=== PATIENT | male | born 1960 | race Two or more races ===

== ENCOUNTER → 2017-09-30 | Outpatient (REF) | LOC: M SMT 11:13 | DX: Z02.71 Encounter for disability determination (principal); M16.12 Unilateral primary osteoarthritis, left hip; M17.12 Unilateral primary osteoarthritis, left knee ==

== ENCOUNTER → 2019-01-21 | Outpatient (CLI) | payer OTHER ==
[~2019-01-21] MED LIST: ASPI81TA85 PO; BENA20TA PO; BLAC1CAP2 PO; CITA10TA5 PO; EMER1CHW PO; FISH500C PO; MULTLIQ7 PO; TRAM50TA2 PO
--- NOTE | 2019-01-26 20:04 | SLEEPCENT ---
DATE OF PROCEDURE: 01/21/2019 Ordered by: Dr. Mckeon Nocturnal polysomnography was performed for evaluation of sleep physiology in light of concern over the possibility of obstructive sleep apnea syndrome. 6 hours and 36 minutes of data were reviewed. There were 276.5 minutes of sleep identified. Sleep latency was prolonged at 84.5 minutes. REM latency was normal at 99.5 minutes. Sleep architecture once established was good. There were three REM cycles. Overall sleep efficiency was 70.9%. The electrocardiogram showed a sinus rhythm throughout with an average heart rate of 60 beats per minute. Rate ranged 50-70 beats per minute. EEG showed some minor alpha intrusion into non-REM stages. There were no focal events identified and there were normal waveforms for awake and sleep. There were 48 respiratory events identified of 10 seconds in duration or greater for an apnea-hypopnea index of 10.4. The events were primarily obstructive, not exclusive to sleep stage nor body posture. Arousals from respiratory events occurred three times per hour and some oxygen desaturations were seen into the 80s. Activity was also seen in the limb leads, but limb related arousals occurred five times per hour and snoring was noted over the entire study. IMPRESSION Obstructive sleep apnea syndrome (G47.33). Apnea-hypopnea index 10.4. RECOMMENDATIONS The patient should be encouraged to return to the sleep disorder center for pressure therapy. In the interim alcohol and sedative avoidance should be practiced and caution exercised during operation of motor vehicles.
== END ==
LOC: M SLEEP 19:25
PROVIDERS: ATTEND Internal Medicine
DX: G47.33 Obstructive sleep apnea (adult) (pediatric) (principal)

== ENCOUNTER → 2019-03-08 | Outpatient (CLI) | payer OTHER ==
[~2019-03-08] MED LIST changes: -BLAC1CAP2 PO; -CITA10TA5 PO; -EMER1CHW PO; -TRAM50TA2 PO
--- NOTE | 2019-03-16 02:48 | ECWPNPC ---
PATIENT NAME: ALON UNGER : 1960 GENDER: MALE VISIT DATE: 03/08/2019 DISCHARGE DATE: 03/08/19 1606 VISIT LOCKED DATE TIME: PHYSICIAN: BETO MONZON MD RESOURCE: BETO MONZON MD REASON FOR APPOINTMENT 1. NECK AND LOW BACK HISTORY OF PRESENT ILLNESS PAIN SCREENING: PATIENT HAS A COMPLAINT OF ACUTE OR CHRONIC PAIN :YES 58 YEAR OLD MALE PATIENT WITH A HISTORY OF CHRONIC LOW BACK AND LEG PAIN. THE PATIENT DESCRIBES THE PAIN BURNING, SHOOTING, AND CONTINUOUS WITH A PAIN SCORE OF 9-10/10 DEPENDING ON PHYSICAL ACTIVITY. THE PATIENT STATES HIS PAIN BEGINS IN HIS LOW BACK AND RADIATES DOWN MAINLY HIS LEFT LEG. THE PATIENT SAYS HE HAS BEEN SUFFERING FROM THIS PAIN FOR MANY YEARS AND HAS BEEN RECEIVING INTERVENTIONAL THERAPY AND MEDICATION MANAGEMENT. THE PATIENT STATES HE HAS HAD A LOW BACK FUSION DONE IN 1998 AND A NECK FUSION IN 1999, YET THE PAIN STILL PERSISTS. THE PATIENT SAYS HIS PAIN IS AFFECTING HIS ABILITY TO PERFORM HIS DAILY ACTIVITIES SUCH WALKING, CLEANING, AND RIDING IN HIS CAR. THE PATIENT REPORTS HAVING A FUSION DONE IN 1998. PATIENT DENIES UNEXPLAINABLE WEIGHT LOSS, FEVER, CHILLS, NEW CHANGES ON HIS URINARY OR BOWEL CONTROL. THE PATIENT MENTIONS HE WAS INFORMED HE HAS A PROSTATE TUMOR AND THERE ARE PLANS FOR IT TO BE REMOVED SOON. FALL RISK SCREENING: SCREENING :NO FALLS REPORTED IN THE LAST YEAR CURRENT MEDICATIONS TAKING IBUPROFEN 800 MG TABLET 1 TABLET ORALLY THREE TIMES A DAY TAKING ATORVASTATIN CALCIUM 80 MG TABLET 1 TABLET ORALLY ONCE A DAY TAKING BENAZEPRIL HCL 40 MG TABLET 1 TABLET ORALLY ONCE A DAY TAKING ASPIRIN ADULT LOW STRENGTH 81 MG TABLET DELAYED RELEASE 1 TABLET ORALLY ONCE A DAY TAKING FISH OIL 1000 MG CAPSULE 1 CAPSULE ORALLY ONCE A DAY TAKING VITAMIN C 500 MG TABLET 1 TABLET ORALLY ONCE A DAY TAKING MULTIVITAMINS CAPSULE ORALLY TAKING SAW PALMETTO 160 MG TABLET DIRECTED ORALLY TAKING CO Q 10 60 MG CAPSULE 1 CAPSULE WITH A MEAL ORALLY ONCE A DAY TAKING CALCIUM 150 MG TABLET DIRECTED ORALLY MEDICATION LIST REVIEWED AND RECONCILED WITH THE PATIENT PAST MEDICAL HISTORY CHRONIC NECK AND BACK PAIN HYPERTENSION HYPERLIPIDEMIA PROSTATE CANCER ALLERGIES N.K.D.A. SURGICAL HISTORY TONSILS REMOVED APPENDIX REMOVED BACK SURGERY-LOW BACK FUSION 1998 NECK SURGERY-FUSION 1999 5 KNEE SURGERIES [id number] FAMILY HISTORY FATHER: , DIAGNOSED WITH HYPERTENSION SIBLINGS: ALIVE NON-CONTRIBUTORY FATHER FROM [employer]. SOCIAL HISTORY GENERAL: TOBACCO USE ARE YOU A:: NEVER SMOKER. PAIN CLINIC PFS, CLERGY, PUBLIC HEALTH REFERRALS HAS THE PATIENT BEEN EDUCATED REGARDING HIS/HER PLAN OF CARE?YES HAS THE PATIENT BEEN EDUCATED REGARDING PAIN, THE RISK FOR PAIN, THE IMPORTANCE OF EFFECTIVE PAIN MANAGEMENT, AND THE PAIN ASSESSMENT PROCESS?YES LATEX QUESTIONNAIRE LATEX ALLERGY : HAVE YOU EVER DEVELOPED ANY TYPE OF REACTION AFTER HANDLING LATEX PRODUCTS SUCH RUBBER GLOVES, CONDOMS, DIAPHRAGMS, BALLOONS, SOCKS, OR UNDERWEAR?NO LATEX ALLERGY : HAVE YOU EVER DEVELOPED ANY TYPE OF REACTION DURING OR AFTER DENTAL APPOINTMENT, VAGINAL/RECTAL EXAMINATION, SURGICAL PROCEDURE, OR ANY OTHER EXPOSURE?NO LATEX RISK : HAVE YOU EVER HAD ANY DIFFICULTY BREATHING OR HIVES AFTER EATING OR HANDLING ANY FRUITS, OR VEGETABLES; SUCH KIWI, BANANAS, STONE FRUITS, OR CHESTNUTSNO LATEX RISK : DO YOU HAVE A PREVIOUS PERSONAL HISTORY OF MORE THAN NINE SURGERIES, SPINA BIFIDA, OR REPEATED CATHERIZATIONS? NO LATEX RISK : ARE YOU FREQUENTLY EXPOSED TO LATEX PRODUCTS IN YOUR OCCUPATION?NO DATE ASKED : 03/08/2019 CAFFEINE CAFFEINE USE?NO ADVANCE DIRECTIVE ADVANCE DIRECTIVE DISCUSSED WITH PATIENT:YES PT DOES NOT HAVE HCP AT THIS TIME AND DECLIES INFO AT THIS TIME. STATES HE WILL DO THIS IN THE FUTURE. 03/08/19 EDUCATION LEVEL OF EDUCATION:PROFESSIONAL SCHOOLS/MASTERS/PHD YAZIDI YAZIDI NO SPIRITISM BELIEFS THAT WOULD IMPACT HEALTH CARE. 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 LEARNING BARRIERS / SPECIAL NEEDS BARRIERS TO LEARNING?NO HEARING IMPAIRED?NO VISION IMPAIRED?NO COGNITIVELY IMPAIRED?NO READINESS TO LEARN?YES REVIEWED WITH PATIENT 03/08/19 1425 BV. HOSPITALIZATION/MAJOR DIAGNOSTIC PROCEDURE SEE ABOVE SURGERIES REVIEW OF SYSTEMS REVIEWED BY: PROVIDER: BETO MONZON MD . CONSTITUTIONAL: ANY CHANGE IN YOUR MEDICAL CONDITION? YES, PATIENT DIAGNOSED WITH PROSTATE CANCER 02/2019 . CHILLS NO . FEVER NO . INFECTION: DO YOU HAVE NEW INFECTIONS? NO . DO YOU HAVE HISTORY OF MRSA? NO . MUSCULOSKELETAL: ANY NEW PATTERNS OF PAIN OR NUMBNESS? NO . SYTEMIC LUPUS NO . GASTROENTEROLOGY: ANY NEW CHANGE IN BOWEL CONTROL? NO . BARRETTS ESOPHAGUS NO . CIRRHOSIS NO . HEPATITIS NO . LIVER FAILURE NO . ACID REFLUX NO . UNEXPLAINED WEIGHT LOSS NO . GENITOURINARY: ANY NEW CHANGE IN BLADDER CONTROL? NO . IS THERE A CHANCE YOU COULD BE ? NO . HEMATOLOGY/LYMPH: DO YOU TAKE ANY BLOOD THINNERS? (FOR EXAMPLE- COUMADIN, PLAVIX, AGGRENOX, PLATEL, PRADAXA, OR XARELTO) NO . WHEN WAS YOUR LAST DOSE? DATE: TIME: . LOW PLATELET COUNT NO . SICKLE CELL DISEASE NO . VON WILLIEBRANDS NO . FACTOR V LEIDEN NO . THALLASEMIA NO . ANEMIA NO . EASY BRUISING NO . NEUROLOGY: HAVE YOU FALLEN IN THE PAST 12 MONTHS? YES, PT HAS HAD A FEW FALLS DUE TO NUMBNESS IN LEG. DENIES ANY INJURIES WITH FALL. . ANY NEW EXTREMITY NUMBNESS OR WEAKNESS? NO . HEAD INJURY NO . DEMENTIA NO . CEREBRAL PALSY NO . MULTIPLE SCLEROSIS NO . DIZZINESS NO . HEADACHE NO . STROKES NO . VERTIGO NO . CARDIOLOGY: DO YOU HAVE A PACEMAKER OR DEFIBRILLATOR? NO . ANGINA NO . HEART ATTACK NO . HEART SURGERY NO . CONGESTIVE HEART FAILURE/FLUID OVERLOAD NO . CHEST PAIN NO . HIGH BLOOD PRESSURE ON MEDICATION(S) . IRREGULAR HEART BEAT NO . RESPIRATORY: HAVE YOU BEEN SICK IN THE PAST WEEK? NO . FEVER NO . FLU LIKE SYMPTOMS? NO . CPAP NO . BYPAP NO . ASTHMA NO . EMPHYSEMA NO . CHRONIC LUNG DISEASES NO . SHORTNESS OF BREATH ON EXERTION NO . COUGH NO . SNORING YES . INTEGUMENTARY: DO YOU HAVE ANY RASHES OR OPEN SORES? NO . ALLERGIC/IMMUNO: ARE YOU ALLERGIC TO IV DYE? NO . ANY NEW ALLERGIES? NO . PSYCHIATRIC: DO YOU HAVE THOUGHTS OF HURTING YOURSELF OR SOMEONE ELSE? NO . ARE YOU ABUSED, NEGLECTED, OR IN AN UNSAFE ENVIRONMENT? NO . ENDOCRINOLOGY: ARE YOU DIABETIC? NO . THYROID DISORDER NO . OTHER: DO YOU NEED ANY PRESCRIPTIONS? NO . IF YES, PLEASE LIST: ____ . ANY NEW PROBLEMS WITH YOUR MEDICATIONS? NO . WHEN DID YOU LAST EAT? ____ . WHEN DID YOU LAST DRINK? ____ . WHAT DID YOU LAST DRINK? ____ . NAME OF PERSON DRIVING YOU HOME? ____ . DO YOU HAVE ANY OTHER QUESTIONS OR CONCERNS NO . VITAL SIGNS WT 207.4 LBS, HT 70 IN, BMI 29.76 INDEX, BP 157/80 MM HG, HR 81 /MIN, RR 16 /MIN, TEMP 98.6 F, OXYGEN SAT % 97%, NA INITIALS SC 14:06, REVIEWED BY: BV. EXAMINATION GENERAL EXAMINATION: PATIENT IS ALERT O X 3 AND COOPERATIVE. LUNGS CLEAR, TO AUSCULTATION. HEART: NO MURMURS OR GALLOPS; FACIAL CRANIAL NERVES ARE GROSSLY NORMAL. GOOD SYMMETRY OF FACIAL MUSCLE MOVEMENT. NORMAL VISUAL ALARCON. ANTALGIC WALK. PATIENT IS LIMPING FROM THE LEFT LEG. LEFT LEG IS WEAKER AT EXTENSION AND FLEXION. STRAIGHT LEG RAISE OF THE LEFT LEG IS POSITIVE AT 10 DEGREES FOR RADICULOPATHY. TENDERNESS OVER THE PARASPINAL MUSCLE GROUP OF THE LOW BACK. PRESENCE OF BANDS OF TISSUE AND TRIGGER POINTS WITH RESTRICTION OF MOVEMENT OF THE LOW BACK. MRI OF THE LUMBAR SPINE DONE ON 03/01/2019 SHOWS LAMINECTOMY AND BILATERAL POSTERIOR FUSION RODS AT L5-S1, BULGING DISC AT L4-L5, AND FACET ARTHROPATHY CHANGES. ASSESSMENTS MYALGIA, OTHER SITE - M79.18 (PRIMARY) LUMBAGO WITH SCIATICA, LEFT SIDE - M54.42 LUMBAGO WITH SCIATICA, RIGHT SIDE - M54.41 OTHER CHRONIC PAIN - G89.29 LUMBAR POST-LAMINECTOMY SYNDROME - M96.1 TREATMENT MYALGIA, OTHER SITE CLINICAL NOTES: WE DISCUSSED SEVERAL ISSUES WITH MR. UNGER'S PAIN MANAGEMENT CASE. I WILL REQUEST A CLEARANCE FROM THE PATIENT'S UROLOGIST, DR. VALDOVINOS IN [place], TO PERFORM STEROID SPINE INJECTIONS. ONCE I RECEIVE CLEARANCE FROM DR. VALDOVINOS, I WOULD LIKE TO MOVE FORWARD WITH A TRIGGER POINT INJECTION DUE TO THE TRIGGER POINTS, BANDS OF TISSUE, AND RESTRICTION OF MOVEMENT. WE DISCUSSED THE BENEFITS, RISKS, AND ALTERNATIVES OF THE INJECTION AND THE PATIENT WOULD LIKE TO PROCEED. I WILL REFER THE PATIENT TO [facility]'S PALLIATIVE STAR PROGRAM FOR MEDICATION MANAGEMENT TO CONSIDER MEDICAL MARIJUANA. THE PATIENT WILL FOLLOW UP WITH THE NURSE PRACTITIONER TO SEE THE STATUS OF THE CLEARANCE AND DISCUSS MOVING FORWARD WITH A TRIGGER POINT INJECTION. INSTRUCTIONS WERE GIVEN, QUESTIONS WERE ANSWERED, PATIENT REPORTS UNDERSTANDING AND AGREES WITH THE PLAN. I, KIRK MARES, DOCUMENTED THE ABOVE INFORMATION ACTING A SCRIBE FOR DR. MONZON. I HAVE REVIEWED THE ABOVE DOCUMENT, WRITTEN BY KIRK MARES SCRFUNMILAYO AND I VERIFY THAT IT IS ACCURATE. DEAR DR. PEPE ISABEL: THANK YOU FOR YOUR KIND REFERRAL OF ALON UNGER. IF YOU WANT TO DISCUSS HIS CASE WITH ME PLEASE CALL ME AT THE PAIN CENTER AT [phone]. SINCERELY, BETO MONZON MD PAIN MEDICINE . PROCEDURE CODES FA211 ESTABILISHED PATIENT [facility] CHARGE [id number] CURRENT MEDS W/DOSAGES DOCUMENTED G8730 PAIN ASSESS POS TOOL F/U PLAN DOC DISPOSITION & COMMUNICATION FOLLOW UP REASON: NEEDS CLEARANCE, AFTER CLEARANCE RQST AUTH FOR TPI?, REFERING TO PALLIATIVE CARE, F/U W/ CARAMEL COLORING OPERATOR ELECTRONICALLY SIGNED BY BETO MONZON MD, MD ON 03/15/2019 AT 11:55 AM EST DISCLAIMER : THIS IS A VISIT SUMMARY EXTRACTED FROM THE [facility] CHART. IT IS NOT A COPY OF THE [employer] [facility] PROGRESS NOTE. MTDD
== END ==
LOC: M PAIN 14:30
PROVIDERS: ATTEND Anesthesiology
DX: M79.18 Myalgia, other site (principal); M54.42 Lumbago with sciatica, left side; M54.41 Lumbago with sciatica, right side; G89.29 Other chronic pain; M96.1 Postlaminectomy syndrome, not elsewhere classified; I10 Essential (primary) hypertension; E78.5 Hyperlipidemia, unspecified; Z85.46 Personal history of malignant neoplasm of prostate; Z79.82 Long term (current) use of aspirin; Z79.899 Other long term (current) drug therapy

== ENCOUNTER 2019-05-24 03:08 | Emergency (ER) | payer OTHER ==
[~2019-05-24] VITALS: Ht 182.9 cm; Wt 95.5 kg
[~2019-05-24 03:08] MED LIST changes: +BLAC1CAP2 PO; +CITA10TA5 PO; +EMER1CHW PO; +TRAM50TA2 PO
[2019-05-24] MEDS ORDERED: NS 1,000 ML IV ONE ×2 (03:45→07:45)
[2019-05-24] MEDS ORDERED: HYDROMORPHONE HCL 0.5 MG/ 0.5 ML SYRINGE (J1170 PER 1) IV ONE ×2 (03:45→08:15)
[2019-05-24 04:23] LABS: BASO % 0.4 % (0.0-1.0); EOS # 0.5 10^3/uL (0.0-0.5); EOS % 4.8 % (0.0-3.0); HEMOGLOBIN 14.7 g/dl (13.5-17.5); LYMPH # 1.8 10^3/uL (1.5-5.0); LYMPH % 17.8 % (24.0-44.0); MEAN CORPUSCULAR HEMOGLOBIN 29.3 pg (27.0-33.0); MEAN CORPUSCULAR HGB CONC 32.7 g/dl (32.0-36.5); MEAN CORPUSCULAR VOLUME 89.6 fl (80.0-96.0); MONO # 0.8 10^3/uL (0.0-0.8); MONO % 7.4 % (0.0-5.0); NEUTROPHILS % 69.2 % (36.0-66.0); PLATELET COUNT, AUTOMATED 240 10^3/uL (150-450); RED BLOOD COUNT 5.02 10^6/uL (4.30-6.10); WHITE BLOOD COUNT 10.2 10^3/uL (4.0-10.0)
[2019-05-24 04:33] LABS: INR 0.95; PROTHROMBIN TIME 12.4 SECONDS (11.8-14.0)
[2019-05-24 04:34] LABS: PARTIAL THROMBOPLASTIN TIME 35.7 SECONDS (25.0-38.4)
[2019-05-24 05:03] LABS: ALBUMIN 3.6 GM/DL (3.2-5.2); ALT/SGPT 48 U/L (12-78); BILIRUBIN,DIRECT 0.1 MG/DL (0.0-0.2); BILIRUBIN,TOTAL 0.4 MG/DL (0.2-1.0); BLOOD UREA NITROGEN 18 MG/DL (7-18); CALCIUM LEVEL 8.2 MG/DL (8.5-10.1); CARBON DIOXIDE LEVEL 23 MEQ/L (21-32); CHLORIDE LEVEL 111 MEQ/L (98-107); CPK CREATINE PHOSPHOKINASE 90 U/L (39-308); CREATININE FOR GFR 1.15 MG/DL (0.70-1.30); GLOMERULAR FILTRATION RATE > 60.0 (>56); GLUCOSE, FASTING 112 MG/DL (70-100); LIPASE 205 U/L (73-393); MB/CK RELATIVE INDEX 1.11 (< OR =4); SODIUM LEVEL 143 MEQ/L (136-145); TOTAL PROTEIN 7.3 GM/DL (6.4-8.2); TROPONIN I < 0.02 NG/ML (< 0.10)
[2019-05-24] MEDS ORDERED: ISOVUE-370 76% 100ML VIAL (Q9967) As Ordered ONE (06:06)
--- NOTE | 2019-05-24 06:21 | ECGEPIP ---
[facility] - ED Test Date: 2019-05-24 Pat Name: ALON UNGER Department: Room: - Gender: Male Lay Out Carpenter: : 1960 Requested By: CORINA OBRINE Order Number: [id number] Reading MD: Venita Philippe Measurements Intervals [place] Rate: 50 P: 10 PA: 151 QRS: 50 QRSD: 98 T: 37 QT: 410 QTc: 377 Interpretive Statements SINUS BRADYCARDIA BASELINE WANDERING MAY AFFECT READING NONSPECIFIC ST T WAVE CHANGES NO PRIOR ECG FOR COMPARISON Electronically Signed on 05-24-2019 6:20:42 EST by Venita Philippe
--- NOTE | 2019-05-24 06:48 | REPVR ---
PROCEDURE INFORMATION: Exam: CT Abdomen And Pelvis With Contrast Exam date and time: 05/24/2019 6:14 AM Age: 58 years old Clinical indication: Abdominal pain; Generalized TECHNIQUE: Imaging protocol: Computed tomography of the abdomen and pelvis with intravenous contrast. Radiation optimization: All CT scans at this facility use at least one of these dose optimization techniques: automated exposure control; mA and/or kV adjustment per patient size (includes targeted exams where dose is matched to clinical indication); or iterative reconstruction. Contrast material: ISOVUE 370; Contrast volume: 100 ml; Contrast route: IV; COMPARISON: CR HIP COMPLETE (AP/LAT) 09/30/2017 11:29 AM FINDINGS: Lungs: There is bibasilar atelectatic lung changes. Liver: The liver is heterogeneous and hypoattenuated. Gallbladder and bile ducts: The gallbladder is distended with mild mural hyperemia and pericholecystic stranding. There is no biliary ductal dilatation. Pancreas: Normal. No ductal dilation. Spleen: Normal. No splenomegaly. Adrenals: Normal. No mass. Kidneys and ureters: Normal. No hydronephrosis. Stomach and bowel: There are few mildly distended small bowel loops in the proximal small bowel measuring up to 4.1 cm with nondistended ileal bowel loops. Appendix: No evidence of appendicitis. Intraperitoneal space: Unremarkable. No free air. No significant fluid collection. Vasculature: Unremarkable. No abdominal aortic aneurysm. Lymph nodes: Unremarkable. No enlarged lymph nodes. Bladder: The urinary bladder is nondistended limiting its evaluation however there is suggestion of wall thickening with pelvic stranding and edema. Reproductive: The patient is likely status post prostatectomy. Bones/joints: The patient is status post L5 laminectomy with L5-S1 interval tibial disc spacer and surgical fixation of L5 and S1 with rods and screws. Soft tissues: There is a 4.8 x 3.8 cm fluid collection in the right anterior pelvis at the base of the inguinal canal and medial to the right external iliac artery and vein. IMPRESSION: 1. Fatty infiltration of the liver. 2. CT findings suggestive of acute cholecystitis. No calcified gallstones seen. Correlate with patient's symptoms and LFTs. Ultrasound of the gallbladder is recommended for further evaluation. 3. Likely status post prostatectomy. 4. Nondistended urinary bladder with apparent wall thickening coupled with diffuse pelvic stranding. Findings could be secondary to cystitis or postradiation changes. 5. 4.8 x 3.8 cm fluid collection in the right pelvis anteriorly most likely postsurgical seroma. Ultrasound or CT-guided aspiration may be obtained for further evaluation. 6. Some mildly distended proximal small bowel loops/jejunum up to 4.1 centimetres with nondistention of the ileal bowel loops but with no obvious transition. Findings are likely chronic transit basis or due to mild element of ileus due to enteritis however early/partial obstruction cannot be completely excluded although felt unlikely. Electronically signed by: Kenneth Griggs On 05/24/2019 06:47:53 AM
--- NOTE | 2019-05-24 06:54 | REPVR ---
PROCEDURE INFORMATION: Exam: CT Angiography Chest With Contrast Exam date and time: 05/24/2019 6:14 AM Age: 58 years old Clinical indication: Chest pain TECHNIQUE: Imaging protocol: Computed tomographic angiography of the chest with intravenous contrast. 3D rendering: MIP and/or 3D reconstructed images were created by the technologist. Radiation optimization: All CT scans at this facility use at least one of these dose optimization techniques: automated exposure control; mA and/or kV adjustment per patient size (includes targeted exams where dose is matched to clinical indication); or iterative reconstruction. Contrast material: ISOVUE 370; Contrast volume: 100 ml; Contrast route: IV; COMPARISON: No relevant prior studies available. FINDINGS: Pulmonary arteries: The ascending aorta is mildly dilated at 4.1 cm at the level of the right pulmonary artery. Aorta: Unremarkable. No aortic aneurysm. No aortic dissection. Thyroid: The thyroid gland is heterogeneous and atrophic. Lungs: There are bibasilar atelectatic lung changes. Pleural space: Unremarkable. No pneumothorax. No pleural effusion. Heart: Unremarkable. No cardiomegaly. No pericardial effusion. Liver: The liver is heterogeneous and hypoattenuated. Gallbladder and bile ducts: The gallbladder is distended with pericholecystic haziness. Lymph nodes: Unremarkable. No enlarged lymph nodes. Bones/joints: Unremarkable. No acute fracture. Soft tissues: Unremarkable. IMPRESSION: 1. No CT evidence of pulmonary embolism or right heart strain. 2. Bibasilar atelectatic lung changes. 3. Fusiform dilatation of the ascending aorta at 4.[address] findings suggestive of acute cholecystitis. Correlate with symptoms, LFTs and gallbladder ultrasound. 5. Fatty infiltration of the liver. 6. Atrophic thyroid gland possibly due to chronic thyroiditis. Correlate with thyroid function test. Electronically signed by: Kenneth Griggs On 05/24/2019 06:54:01 AM
[2019-05-24] MEDS ORDERED: PIPERACILLIN/TAZOBACTAM SOD 3.375 GM in D5W MINI-BAG PLUS 50 ML IV ONE (07:30)
[2019-05-24 09:45] VITALS: BP 108/73
== END 2019-05-24 09:50 | disposition short-term general hospital (02) ==
LOC: M ED 03:08
DX: K81.0 Acute cholecystitis (principal); I10 Essential (primary) hypertension; Z79.899 Other long term (current) drug therapy; Z79.82 Long term (current) use of aspirin
CPT/HCPCS: 71275; 74177; 80048; 80076; 82550; 82553; 83605; 83690; 84484; 85025; 85610; 85730; 87040; 93005; 96365; 96366; 96375; 96376; 99285; J1170; J2543; Q9967

== ENCOUNTER → 2020-07-20 | Outpatient (CLI) | payer OTHER ==
[~2020-07-20] MED LIST changes: -ASPI81TA85 PO; +ASPI81TA86 PO; +ECOT81TA5 PO; +EZET10TA21 PO; +PRES10CA2 PO; +ROSU40TA4 PO
== END ==
LOC: M LABSMTC 12:49
PROVIDERS: ATTEND Anesthesiology
DX: Z01.812 Encounter for preprocedural laboratory examination (principal); Z20.822 Contact with and (suspected) exposure to COVID-19

== ENCOUNTER 2020-07-24 09:40 | Day surgery (SDC) | payer OTHER ==
[~2020-07-24] VITALS: Ht 182.9 cm; Wt 95.2 kg
[~2020-07-24 09:40] MED LIST changes: +NS 1,000 ML IV ONE
[2020-07-24] MEDS ORDERED: LIDOCAINE 2% 100MG/5ML SDV (FOR ANES.) As Ordered ONE (10:54)
[2020-07-24] MEDS ORDERED: propofoL 500 MG/50 ML VIAL As Ordered ONE (10:54)
--- NOTE | 2020-07-24 11:23 | ROOR ---
Patient Name: Grace Connors Procedure Date: 07/24/2020 10:46 AM Date of : 1960 Age: 59 Room: [facility] Gender: Male Note Status: Finalized Procedure: Total Colonoscopy to Cecum + Cold Snare Polypectomy + Hemoclips Indications: High risk colon cancer surveillance: Personal history of colonic polyps, Last colonoscopy: 2015 Providers: Dennis Hidalgo MD Referring MD: Taj Mckeon MD Requesting Provider: Medicines: Monitored Anesthesia Care Complications: No immediate complications. Procedure: Pre-Anesthesia Assessment: - The heart rate, respiratory rate, oxygen saturations, blood pressure, adequacy of pulmonary ventilation, and response to care were monitored throughout the procedure. The Colonoscope was introduced through the anus and advanced to the cecum, identified by appendiceal orifice and ileocecal valve. The colonoscopy was performed without difficulty. The patient tolerated the procedure well. The quality of the bowel preparation was excellent. Findings: The perianal and digital rectal examinations were normal. Non-bleeding internal hemorrhoids were found during retroflexion. The hemorrhoids were small and Grade I (internal hemorrhoids that do not prolapse). Four pedunculated polyps were found in the proximal ascending colon. The polyps were small in size. These polyps were removed with a cold snare. Resection and retrieval were complete. To prevent bleeding after the polypectomy, four hemostatic clips were successfully placed (MR conditional). There was no bleeding at the end of the procedure. The exam was otherwise without abnormality on direct and retroflexion views. Impression: - Non-bleeding internal hemorrhoids. - Four small polyps in the proximal ascending colon, removed with a cold snare. Resected and retrieved. Clips (MR conditional) were placed. - The examination was otherwise normal on direct and retroflexion views. - The exam was otherwise normal to the cecum. Recommendation: - Patient has a contact number available for emergencies. The signs and symptoms of potential delayed complications were discussed with the patient. Return to normal activities tomorrow. Written discharge instructions were provided to the patient. - High fiber diet. - Discharge patient to home. - Continue present medications. - Await pathology results. - Telephone GI clinic for pathology results in 1 week. - Repeat colonoscopy in 3 years for surveillance based on pathology results. - Return to referring physician. - The findings and recommendations were discussed with the patient. Procedure Code(s): --- Professional --- 87823, Colonoscopy, flexible; with removal of tumor(s), polyp(s), or other lesion(s) by snare technique Diagnosis Code(s): --- Professional --- Z86.010, Personal history of colonic polyps K64.0, First degree hemorrhoids K63.5, Polyp of colon CPT copyright 2019 [employer]. All rights reserved. The codes documented in this report are preliminary and upon sand caster apprentice review may be revised to meet current compliance requirements. Dennis Hidalgo MD Dennis Hidalgo MD 07/24/2020 11:23:01 AM Electronically signed by Dennis Hidalgo MD Number of Addenda: 0 Note Initiated On: 07/24/2020 10:46 AM Estimated Blood Loss: Estimated blood loss: none.
[2020-07-24 11:45] VITALS: BP 124/72
== END 2020-07-24 12:27 | disposition home or self-care (01) ==
LOC: M OPP 09:40
PROVIDERS: ATTEND Internal Medicine Gastroenterology
DX: Z12.11 Encounter for screening for malignant neoplasm of colon (principal); Z86.010 Personal history of colon polyps; D12.2 Benign neoplasm of ascending colon; K64.0 First degree hemorrhoids; F17.210 Nicotine dependence, cigarettes, uncomplicated; I10 Essential (primary) hypertension; Z79.82 Long term (current) use of aspirin; Z79.899 Other long term (current) drug therapy

== ENCOUNTER → 2021-11-07 | Outpatient (CLI) | payer OTHER ==
[~2021-11-07] MED LIST changes: -CITA10TA5 PO; +CITA10TA7 PO; -NS 1,000 ML IV ONE
== END ==
LOC: M PAIN 10:15
PROVIDERS: ATTEND Anesthesiology
DX: M96.1 Postlaminectomy syndrome, not elsewhere classified (principal); M48.00 Spinal stenosis, site unspecified; M54.2 Cervicalgia; I10 Essential (primary) hypertension; E78.5 Hyperlipidemia, unspecified; G47.30 Sleep apnea, unspecified; Z85.46 Personal history of malignant neoplasm of prostate; L82.1 Other seborrheic keratosis; Z79.82 Long term (current) use of aspirin; Z79.899 Other long term (current) drug therapy; Z79.1 Long term (current) use of non-steroidal anti-inflammatories (NSAID)

== ENCOUNTER → 2021-12-27 | Outpatient (CLI) | payer MEDICARE, OTHER | LOC: M SOG 08:01 | PROVIDERS: ATTEND Orthopaedic Surgery Hand Surgery | DX: M79.642 Pain in left hand (principal) ==

== ENCOUNTER → 2022-07-12 | Outpatient (CLI) | payer OTHER ==
[~2022-07-12] MED LIST changes: +PROHANCE 279.3MG/ML 15ML VIAL ONE; +PROHANCE 279.3MG/ML 5ML VIAL ONE
== END ==
LOC: M PLAIMG 12:29
PROVIDERS: ATTEND Specialist
DX: G35 Multiple sclerosis (principal)
CPT/HCPCS: 70553; A9576

== ENCOUNTER → 2022-08-01 | Outpatient (CLI) | payer OTHER | LOC: M PLAIMG 13:07 | PROVIDERS: ATTEND Specialist | DX: M54.12 Radiculopathy, cervical region (principal); G35 Multiple sclerosis | CPT/HCPCS: 72156; 72157; A9576 ==

== ENCOUNTER → 2023-01-27 | Outpatient (CLI) | payer OTHER ==
[~2023-01-27] MED LIST changes: -PROHANCE 279.3MG/ML 15ML VIAL ONE; -PROHANCE 279.3MG/ML 5ML VIAL ONE
== END ==
LOC: M PLAIMG 13:06
PROVIDERS: ATTEND Neurological Surgery
DX: M48.062 Spinal stenosis, lumbar region with neurogenic claudication (principal)

== ENCOUNTER 2023-12-29 07:16 | Day surgery (SDC) | payer OTHER ==
[~2023-12-29] VITALS: Ht 182.9 cm; Wt 96.6 kg
[~2023-12-29 07:16] MED LIST changes: +COQ150CH PO; -ROSU40TA4 PO; +ROSU40TA63 PO; +VITA100093 PO; +VITA500C24 PO
[2023-12-29] MEDS: NS 1,000 ML IV ONE (07:41)
[2023-12-29] MEDS ORDERED: hydrALAZINE 20MG/ML 1ML VIAL As Ordered ONE (08:20)
[2023-12-29] MEDS ORDERED: propofoL 200 MG/20 ML VIAL As Ordered ONE (08:21)
[2023-12-29] MEDS ORDERED: LIDOCAINE 2% 100MG/5ML SDV (FOR ANES.) As Ordered ONE (08:21)
[2023-12-29 09:05] VITALS: BP 135/84; TEMP 98.2; O2SAT 95
== END 2023-12-29 09:39 | disposition home or self-care (01) ==
LOC: M OPP 07:16
PROVIDERS: ATTEND Internal Medicine Gastroenterology
DX: Z12.11 Encounter for screening for malignant neoplasm of colon (principal); Z86.010 Personal history of colon polyps; D12.6 Benign neoplasm of colon, unspecified; D12.8 Benign neoplasm of rectum; G47.30 Sleep apnea, unspecified; Z99.89 Dependence on other enabling machines and devices; Z79.82 Long term (current) use of aspirin
CPT/HCPCS: 45385; 88305; J0360

== ENCOUNTER → 2024-03-17 | Outpatient (CLI) | payer OTHER ==
[~2024-03-17] MED LIST changes: -ROSU40TA63 PO; +ROSU40TA81 PO
== END ==
LOC: M PLAIMG 07:24
PROVIDERS: ATTEND Student in an Organized Health Care Education/Training Program
DX: M79.641 Pain in right hand (principal); M79.642 Pain in left hand

== ENCOUNTER → 2024-03-20 | Outpatient (CLI) | payer OTHER | LOC: M RAD 10:50 | PROVIDERS: ATTEND Student in an Organized Health Care Education/Training Program | DX: M79.641 Pain in right hand (principal); M79.642 Pain in left hand ==

== ENCOUNTER → 2024-05-13 | Outpatient (CLI) | payer OTHER ==
[~2024-05-13] MED LIST changes: +ACET-683 PO; +ATOR80TA59 PO; +FOLI1TAB11 PO; +GABA-1172 PO; +METO1TAB87 PO
== END ==
LOC: M ONCR 10:09
PROVIDERS: ATTEND General Practice
DX: C61 Malignant neoplasm of prostate (principal); Z90.79 Acquired absence of other genital organ(s); R97.21 Rising PSA following treatment for malignant neoplasm of prostate; Z80.42 Family history of malignant neoplasm of prostate; Z80.8 Family history of malignant neoplasm of other organs or systems; Z79.82 Long term (current) use of aspirin; Z79.818 Long term (current) use of other agents affecting estrogen receptors and estrogen levels; Z79.891 Long term (current) use of opiate analgesic; Z79.899 Other long term (current) drug therapy

== ENCOUNTER 2024-05-25 13:24 | Outpatient (RCR) | payer OTHER | END 2024-06-11 | LOC: M ONCR 13:24 | PROVIDERS: ATTEND General Practice | DX: Z51.0 Encounter for antineoplastic radiation therapy (principal); C61 Malignant neoplasm of prostate ==

== ENCOUNTER → 2024-07-09 | Outpatient (RCR) | payer OTHER ==
[~2024-07-09] MED LIST changes: +OXYB-54 PO
== END ==
LOC: M ONCR 06-16 13:33
PROVIDERS: ATTEND General Practice
DX: Z51.0 Encounter for antineoplastic radiation therapy (principal); C61 Malignant neoplasm of prostate

== ENCOUNTER 2024-08-06 13:32 | Outpatient (RCR) | payer OTHER ==
[~2024-08-06 13:32] MED LIST changes: +OXYB10TA23 PO
== END 2024-08-09 ==
LOC: M ONCR 13:32
PROVIDERS: ATTEND General Practice
DX: Z51.0 Encounter for antineoplastic radiation therapy (principal); C61 Malignant neoplasm of prostate

== ENCOUNTER → 2025-01-04 | Outpatient (CLI) | payer OTHER, MEDICARE | LOC: M ONCR 14:27 | PROVIDERS: ATTEND General Practice | DX: C61 Malignant neoplasm of prostate (principal); Z92.3 Personal history of irradiation; Z87.891 Personal history of nicotine dependence; Z79.818 Long term (current) use of other agents affecting estrogen receptors and estrogen levels; Z79.82 Long term (current) use of aspirin; Z79.899 Other long term (current) drug therapy ==

== ENCOUNTER → 2025-03-04 | Outpatient (CLI) | payer OTHER, MEDICARE ==
[~2025-03-04] MED LIST changes: -EZET10TA21 PO; +EZET10TA57 PO
[2025-03-04 12:45] LABS: PROSTATIC SPECIFIC AG MONITOR 0.04 NG/ML (< 4.00)
[2025-03-04 12:52] LABS: TESTOSTERONE < 7 NG/DL (241-827)
== END ==
LOC: M ONCR 11:45
PROVIDERS: ATTEND General Practice
DX: C61 Malignant neoplasm of prostate (principal); Z92.29 Personal history of other drug therapy; Z92.3 Personal history of irradiation; Z79.82 Long term (current) use of aspirin; Z79.899 Other long term (current) drug therapy